=== PATIENT | female | born 1955 | race Caucasian/White ===

== ENCOUNTER 2017-12-18 05:50 | Inpatient (IN) | payer BC, OTHER ==
[~2017-12-18] VITALS: Ht 160 cm; Wt 68.3 kg
[~2017-12-18 05:50] MED LIST: 5-HT50CA2 PO; ADVA100A INH; ALBUAER3 INH; HYDR-3583 PO; IMIT100T PO; MULTTAB67 PO; OMEGCAP PO; OMEP20TA93 PO; ROSU10 PO
[2017-12-18] MEDS ORDERED: METOPROLOL TARTRATE 25 MG TAB PO PRN (06:45)
[2017-12-18] MEDS ORDERED: SODIUM CHLORID 0.9% 500 ML IV PRN (06:45)
[2017-12-18] MEDS ORDERED: POVIDONE IODINE 5% (ANTISEPSIS KIT) 4 APPLICATIONS EACH NARE PRN (06:45)
[2017-12-18] MEDS ORDERED: VANCOMYCIN 1 GM/200 ML PREMIX IV SCH (06:45)
[2017-12-18] MEDS ORDERED: CHLORHEXIDINE GLUCONATE 2 % 1 PACK (2 CLOTHS) TOPICAL PRN (06:45)
[2017-12-18] MEDS ORDERED: LACTATED RINGER'S 1000 ML IV PRN (06:45)
[2017-12-18] MEDS ORDERED: FLUT1INH INH (06:51)
[2017-12-18] MEDS ORDERED: MELO7.5T27 PO (06:53)
[2017-12-18] MEDS ORDERED: ACET-822 PO (06:53)
[2017-12-18 06:55] LABS: AUTOMATED NEUTROPHIL # 6.4 TH/MM3 (1.8-7.7); BASOPHIL # 0.1 TH/MM3 (0-0.2); BASOPHIL % 0.6 % (0.0-2.0); EOSINOPHIL # 0.3 TH/MM3 (0-0.4); EOSINOPHIL % 3.1 % (0.0-4.0); HEMATOCRIT 38.9 % (35.0-46.0); HEMOGLOBIN 13.6 GM/DL (11.6-15.3); LYMPH % 21.9 % (9.0-44.0); LYMPHOCYTE # 2.1 TH/MM3 (1.0-4.8); MEAN CELL VOLUME 90.2 FL (80.0-100.0); MEAN CORPUSCULAR HEMOGLOBIN 31.5 PG (27.0-34.0); MEAN CORPUSCULAR HGB CONC 34.9 % (32.0-36.0); MEAN PLATELET VOLUME 7.8 FL (7.0-11.0); MONO % 8.2 % (0.0-8.0); MONOCYTE # 0.8 TH/MM3 (0-0.9); NEUT % 66.2 % (16.0-70.0); PLATELET COUNT 307 TH/MM3 (150-450); RED BLOOD COUNT 4.31 MIL/MM3 (4.00-5.30); RED CELL DISTRIBUTION WIDTH 13.1 % (11.6-17.2); WHITE BLOOD COUNT 9.6 TH/MM3 (4.0-11.0)
[2017-12-18] MEDS ORDERED: SUGAMMADEX SODIUM 200 MG/2 ML VIAL IV PUSH ONE (07:11)
[2017-12-18] MEDS ORDERED: HYDROmorphone HCL PF 2 MG/ML VIAL ONE (07:12)
[2017-12-18] MEDS ORDERED: GLUCAGON 1 MG/ML VIAL ONE (07:12)
[2017-12-18] MEDS ORDERED: BUPIVACAINE/EPINEPHRINE 0.5% PF 30 ML VIAL ONE (07:12)
[2017-12-18] MEDS ORDERED: RESP: ALBUTEROL 2.5 MG/3 ML NEB (SCH) ONE (07:20)
[2017-12-18] MEDS ORDERED: diphenhydrAMINE HCL 50 MG/ML VIAL ONE (07:20)
[2017-12-18 07:26] LABS: CALCIUM 8.8 MG/DL (8.5-10.1); CREATININE 0.72 MG/DL (0.50-1.00)
[2017-12-18] MEDS ORDERED: RESP: ALBUTEROL 2.5 MG/IPRATROPIUM 0.5 MG NEB (PRN) ONE (07:26)
[2017-12-18] MEDS ORDERED: DO NOT ADM ANY ANTICOAGULANT DRUGS PRN (10:49)
--- NOTE | 2017-12-18 10:59 | HHI.PR ---
Immediate Post Op Note Procedure Date: Dec 18, 2017 Pre Op Diagnosis: gastric outlet obstruction, gerd Post Op Diagnosis: same Surgeon: Yinka Brown MD Cigar Head Puncher(s): Dr. Romo Procedure: lap RY Gastrojejunostomy, truncal vagotomy, hh repair Findings: no leak with methylene blue, bx confirm vagus nerve Complications: none Specimen(s) removed: anterior and posterior vagus Estimated blood loss: 15cc Anesthesia: General Drains: None Patient to: PACU Patient Condition: Good Yinka Brown MD Dec 18, 2017 10:59
[2017-12-18] MEDS: SODIUM CHLORIDE 0.9% FLUSH 10 ML FLUSH IV FLUSH SCH ×2 (11:00→20:36)
[2017-12-18] MEDS ORDERED: diphenhydrAMINE HCL 25 MG CAP PO PRN (11:00)
[2017-12-18] MEDS ORDERED: KETOROLAC TROMETHAMINE 30 MG/ML (IVP) VIAL IVP PRN (11:00)
[2017-12-18] MEDS ORDERED: ONDANSETRON HCL 4 MG/2 ML VIAL IV PUSH PRN (11:00)
[2017-12-18] MEDS ORDERED: oxyCODONE/ACETAMINOPHEN 5 MG/325 MG TAB PO PRN (11:00)
[2017-12-18] MEDS ORDERED: NALOXONE HCL 0.4 MG/ML AMP IV PUSH PRN (11:00)
[2017-12-18] MEDS ORDERED: Post-op Orders (for Pharmacy) XX ONE (11:00)
[2017-12-18] MEDS ORDERED: MORPHINE SULFATE 30 MG/30 ML PCA IV SCH (11:00)
[2017-12-18] MEDS ORDERED: METOCLOPRAMIDE HCL 10 MG/2 ML VIAL IVS PRN (11:00)
[2017-12-18] MEDS ORDERED: SODIUM CHLORIDE 0.9% FLUSH 10 ML FLUSH IV FLUSH PRN (11:00)
[2017-12-18] MEDS ORDERED: *ONDANSETRON 4 MG VIAL PERIprocedural Use ONLY ONE (11:05)
[2017-12-18] MEDS ORDERED: MIDAZOLAM HCL 2 MG/2 ML VIAL ONE (11:27)
[2017-12-18] MEDS: SODIUM CHLOR 0.9% 1000 ML INJ 1,000 ML IV SCH ×2 (11:35→20:36)
[2017-12-18] MEDS ORDERED: LACTATED RINGER'S 1000 ML INJ 2,000 ML IV ONE (12:00)
[2017-12-18] MEDS ORDERED: PROPOFOL 200 MG/20 ML AMP IV ONE (12:00)
[2017-12-18] MEDS ORDERED: SUCCINYLCHOLINE CHLORIDE 100 MG/5 ML SYRINGE IV PUSH ONE (12:00)
[2017-12-18] MEDS ORDERED: ESMOLOL HCL 100 MG/10 ML VIAL IV ONE (12:00)
[2017-12-18] MEDS ORDERED: LIDOCAINE HCL 1% PF 5 ML SYRINGE OTHER ONE (12:00)
[2017-12-18] MEDS ORDERED: DEXAMETHASONE SOD PHOS 4 MG/ML VIAL IV ONE (12:00)
[2017-12-18] MEDS ORDERED: PHENYLEPH/NS 1000 MCG/10 ML SYR IV ONE (12:00)
[2017-12-18] MEDS ORDERED: ROCURONIUM INJ 50 MG/5 ML SYRINGE IV PUSH ONE (12:00)
[2017-12-18] MEDS ORDERED: ONDANSETRON HCL 4 MG/2 ML VIAL IV ONE (12:00)
[2017-12-18 13:30] VITALS: BP 122/66; PULSE 94; RESP 16; TEMP 97.8; O2SAT 96
[2017-12-18] MEDS: DOCUSATE SODIUM 100 MG CAP PO SCH ×2 (13:30→20:36)
[2017-12-18] MEDS: PCA - TOTAL MG MORPHINE DELIVERED PER SHIFT SCH ×2 (14:00→22:00)
[2017-12-18] MEDS ORDERED: ACETAMINOPHEN 1000 MG/100 ML 100 ML IV ONE (18:30)
[2017-12-18 20:00] VITALS: BP 103/59; PULSE 103; RESP 17; TEMP 97.5; O2SAT 95
[2017-12-18] MEDS: VANCOMYCIN INJ 1,000 MG in SODIUM CHLOR 0.9% 250 ML INJ 250 ML IV SCH (20:36)
[2017-12-19] VITALS: BP 104/59; PULSE 111; RESP 17; TEMP 97.6; O2SAT 96
--- NOTE | 2017-12-19 00:12 | EKG ---
Date Performed: 12/18/2017 Time Performed: 06:43:05 PTAGE: 62 years EKG: Sinus rhythm NORMAL ECG PREVIOUS TRACING : 11/06/2009 15.40 DOCTOR: Cara Landon Interpretating Date/Time 12/19/2017 00:05:19
[2017-12-19 04:42] VITALS: BP 108/66; PULSE 108; RESP 17; TEMP 98; O2SAT 96
[2017-12-19] MEDS: PCA - TOTAL MG MORPHINE DELIVERED PER SHIFT SCH ×3 (06:00→22:39)
[2017-12-19 07:02] LABS: AUTOMATED NEUTROPHIL # 10.9 TH/MM3 (1.8-7.7); BASOPHIL % 0.1 % (0.0-2.0); HEMATOCRIT 34.3 % (35.0-46.0); HEMOGLOBIN 11.5 GM/DL (11.6-15.3); LYMPH % 11.2 % (9.0-44.0); LYMPHOCYTE # 1.5 TH/MM3 (1.0-4.8); MEAN CELL VOLUME 92.2 FL (80.0-100.0); MEAN CORPUSCULAR HEMOGLOBIN 30.9 PG (27.0-34.0); MEAN CORPUSCULAR HGB CONC 33.5 % (32.0-36.0); MEAN PLATELET VOLUME 8.2 FL (7.0-11.0); MONOCYTE # 1.2 TH/MM3 (0-0.9); NEUT % 79.7 % (16.0-70.0); PLATELET COUNT 263 TH/MM3 (150-450); RED BLOOD COUNT 3.72 MIL/MM3 (4.00-5.30); RED CELL DISTRIBUTION WIDTH 12.8 % (11.6-17.2); WHITE BLOOD COUNT 13.7 TH/MM3 (4.0-11.0)
[2017-12-19 07:33] LABS: BICARBONATE 21.2 MEQ/L (21.0-32.0); CALCIUM 8.1 MG/DL (8.5-10.1); CREATININE 0.66 MG/DL (0.50-1.00)
[2017-12-19 08:00] VITALS: BP 121/58; PULSE 105; RESP 17; TEMP 97.8; O2SAT 97
[2017-12-19] MEDS: VANCOMYCIN INJ 1,000 MG in SODIUM CHLOR 0.9% 250 ML INJ 250 ML IV SCH (08:02)
[2017-12-19] MEDS: DOCUSATE SODIUM 100 MG CAP PO SCH ×2 (08:02→22:39)
[2017-12-19] MEDS: SODIUM CHLORIDE 0.9% FLUSH 10 ML FLUSH IV FLUSH SCH ×2 (08:02→22:39)
[2017-12-19] MEDS: SODIUM CHLOR 0.9% 1000 ML INJ 1,000 ML IV SCH ×2 (08:03→19:30)
--- NOTE | 2017-12-19 08:48 | HHI.PR ---
Subjective Subjective Notes c/o garcia, no nausea, mild abdominal pain Objective Vitals/I&O Vital Signs Date Time Temp Pulse Resp B/P (MAP) Pulse Ox O2 Delivery O2 Flow Rate FiO2 12/19/17 06:00 18 12/19/17 04:42 98.0 108 108/66 (80) 96 12/18/17 12:30 Nasal Cannula 2 Labs Laboratory Tests Test 12/19/17 05:28 White Blood Count 13.7 Red Blood Count 3.72 Hemoglobin 11.5 Hematocrit 34.3 Mean Corpuscular Volume 92.2 Mean Corpuscular Hemoglobin 30.9 Mean Corpuscular Hemoglobin Concent 33.5 Red Cell Distribution Width 12.8 Platelet Count 263 Mean Platelet Volume 8.2 Neutrophils (%) (Auto) 79.7 Lymphocytes (%) (Auto) 11.2 Monocytes (%) (Auto) 9.0 Eosinophils (%) (Auto) 0.0 Basophils (%) (Auto) 0.1 Neutrophils # (Auto) 10.9 Lymphocytes # (Auto) 1.5 Monocytes # (Auto) 1.2 Eosinophils # (Auto) 0.0 Basophils # (Auto) 0.0 CBC Comment DIFF FINAL Differential Comment Blood Urea Nitrogen 19 Creatinine 0.66 Random Glucose 74 Calcium Level 8.1 Sodium Level 142 Potassium Level 3.7 Chloride Level 111 Carbon Dioxide Level 21.2 Anion Gap 10 Estimat Glomerular Filtration Rate 91 Lungs: Clear Abdomen: Other (incisions c/d/i) A/P Assessment and Plan POD 1 Lap GJ, lap vagotomy, hh repair PLAN ok for ice chips UGI pending, advance diet to clears following results oob pain control dvt ppx Yinka Brown MD Dec 19, 2017 08:48
--- NOTE | 2017-12-19 09:49 | MP ---
cc: Yinka Brown MD DATE OF OPERATION: DATE OF PROCEDURE: 12/18/2017. PREOPERATIVE DIAGNOSIS: Gastric outlet obstruction, reflux. POSTOPERATIVE DIAGNOSIS: Gastric outlet obstruction, reflux. PROCEDURE PERFORMED: 1. Laparoscopic Jesus-en-Y gastrojejunostomy. 2. Truncal vagotomy. 3. Laparoscopic hiatal hernia repair. SURGEON: Yinka Brown MD MOBILE DEVICE ENGINEER: Pedro Odonnell MD. Dr. Odonnell needed due to the complexity of the case. Dr. Odonnell assisted with a camera control and retraction. ANESTHESIA: GETA. IV FLUIDS: See anesthesia sheet. ESTIMATED BLOOD LOSS: 15 mL DRAINS: None. COMPLICATIONS: None. WOUND CLASSIFICATION: Clean/contaminated. FINDINGS: No leak with methylene blue. SPECIMENS: Anterior and posterior vagus nerves sent for pathology. INDICATIONS: The patient is a 62-year-old female who presents with acute gastric outlet obstruction. She has noted scarring and a distal obstruction on endoscopy and upper GI series. She had difficulty tolerating solids and has been on liquid diet and had significant reflux as well. She had further workup and decision was made for bypass and laparoscopic Jesus-en-Y gastrojejunostomy. Discussed with the patient the need for possible delayed gastric emptying. Also, need for possible jejunostomy tube and possible future revisional procedures. She stated understanding and agreed and would like to proceed. DETAILS OF PROCEDURE: The patient was taken to the operating suite, placed in supine position. She was prepped and draped in the usual sterile fashion after induction of general endotracheal anesthesia. Brief timeout was done stating correct patient, procedure and surgical site. We were all in agreement with this. Attention first directed 18 cm distal to the xiphoid process. Local anesthetic injected. A small stab suzanne incision was made. A 5 mm incision was made at midline. Optiview port was placed under direct visualization and pneumoperitoneum induced to 15 mm. On visual inspection, no evidence of injury. The patient was noted to have some infraumbilical adhesions as well. Several other ports were placed, including one right upper quadrant 5 mm port for liver retraction. Next right lower quadrant port was a 12 mm, followed by a left lower quadrant port 12 mm and left upper quadrant port 5 mm. Decision was made to do the truncal vagotomy out first. The patient was placed in reverse Trendelenburg. The [place] Flex retractor was placed in order to get adequate exposure of visualization to the hiatus. The pars was dissected out and the esophagus/GE junction was also further dissected out circumferentially. A 1/2 inch [place] drain was placed to assist with retraction and mobilization. A window posterior to the esophagus was created, identifying both the right and left flor in attempts to identify the vagus nerves. After full mobilization again at the GE junction, the posterior vagus was identified and two 5 mm clips placed, one proximally and then second one distally and a 1.5 cm segment of nerve was transected using Endo Tim. This was sent to pathology for confirmation. Next, the anterior aspect of the left vagus nerve was identified. Again this was anteriorly. This was dissected off the esophagus. Again, 1.5 cm segment was identified and 2 clips were placed, one proximally, one distally and the Endo Tim used to transect the anterior vagus nerve, again sent for pathology for confirmation which was positive on findings via the pathologist. Next, the hiatus and hiatal hernia was reapproximated to the posterior flor. This was done with 0 Vicryl in a uusctr-ff-[id number] fashion. Following this, attention was then directed to the ligament of Treitz. The omentum was retracted cephalad. Harmonic scalpel was used to transect the omentum from the colon and the gastrocolic ligament. This was done from the hepatic flexure to the splenic and across the transverse colon and then split the omentum. The colon was then retracted cephalad. The ligament of Treitz was identified. The small bowel was walked approximately 20 cm distally in order to find an appropriate place for transection. An Endo-KRISTOPHER stapler was used to transect the bowel. This was done in preparation of creation of a gastrojejunostomy. This was done with [place] Flex Endo-GI stapler with the SeamGuard reinforced. A clip was placed to theo the proximal limb. The distal limb was then further walked another 35 cm distally. Two enterotomies were done on the antimesenteric borders of the biliopancreatic limb and the previously transected limb again in conjunction and creation of our gastrojejunostomy. The linear KRISTOPHER stapler was used to create a rmplslb-kqh-spexpxp layer. This was done in a xauv-gt-hrfj stapling manner. Next, the enterotomies were grasped with a [place]. Conjoined enterotomies were done using Endo-GI stapler. Small clips were placed to the staple line for hemostasis. A 2-0 silk suture was used in the small redundant portion and secured with a Lapra-Ty. Once we were satisfied in completion of this, the patient was then placed back in reverse Trendelenburg with left side up. The greater curvature of the stomach was identified at an appropriate area and the greater curvature vessels were taken using harmonic scalpel. Once an adequate landing zone was obtained, the posterior greater curvature of the stomach in a retrocolic fashion was viewed. Harmonic scalpel was used to make a small enterotomy in this gastric portion. The Jesus limb was brought cephalad as well, small enterotomy made in the antimesenteric border of the small bowel as well, again using an Endo-KRISTOPHER stapler to approximate and create a iefeoqs-ecx-ititsrq layer in order to fashion a gastrojejunostomy was done. Next, to close the conjoined enterotomy, a second firing staple load was done to close this layer as well. A 2-0 silk suture was used on a Lapra-Ty in order to place a crotch stitch reinforcement. Upon completion of this, then attention directed to the mesenteric defects and potential for internal hernias. Therefore, a nonabsorbable silk suture was used in a running fashion to reapproximate the jejunojejunostomy defect. Following this, Evicel was placed at all suture lines. Prior to this actually the gastrojejunostomy staple line was tested with methylene blue without evidence of leaking. Next, the patient was placed flat. The pneumoperitoneum was removed. Ports were removed. Prior to removal transfascial suture closure of the 12 mm ports was done with 0 Vicryl suture. 4-0 Monocryl subcuticular sutures were done at all port sites. Sterile dressings were then placed. All lap and instrument counts were correct at the end of the procedure. The patient tolerated the procedure well. There were no intraoperative complications. The patient was extubated and taken stable to PACU. MD YONI Carvajal/RENATO , 09:01 AM , 09:48 AM
[2017-12-19] MEDS ORDERED: ACETAMINOPHEN 1000 MG/100 ML 100 ML IV ONE (10:00)
[2017-12-19] MEDS ORDERED: DIATRIZOATE MEGLUM/DIATRIZOATE SOD 120 ML BTL (for RAD DIAG) PO ONE (10:30)
[2017-12-19] MEDS: ENOXAPARIN SODIUM 30 MG/0.3 ML SYRINGE SQ SCH (11:07)
--- NOTE | 2017-12-19 11:09 | RADRPT ---
EXAM DATE/TIME: 12/19/2017 10:25 [facility] COMPARISON: No previous studies available for comparison. INDICATIONS : Post gastrojejunostomy, history of gastric outlet obstruction FLUORO TIME: 1.4 minutes IMAGE COUNT: 11 CONTRAST: 1. MD Zelaya MEDICAL HISTORY : Gastroesophageal reflux disease. gastric outlet obstruction SURGICAL HISTORY : gastrojejunostomy ENCOUNTER: Initial ACUITY: 1 day PAIN SCORE: 0/10 LOCATION: Bilateral abdomen FINDINGS: The esophagus fills normally. No focal filling defects are seen in the stomach. Gastrojejunostomy is patent without evidence for leakage. CONCLUSION: 1. No leakage or obstruction at the gastrojejunostomy site. Efrain Carpenter MD on December 19, 2017 at 11:05 Board Certified Radiologist. This report was verified electronically.
[2017-12-19 12:00] VITALS: BP 111/74; PULSE 111; RESP 17; TEMP 98; O2SAT 97
[2017-12-19 16:00] VITALS: BP 129/63; PULSE 110; RESP 18; TEMP 98.3; O2SAT 96
[2017-12-19 20:00] VITALS: BP 102/70; PULSE 116; RESP 16; TEMP 98.1; O2SAT 97
[2017-12-20] VITALS (8 sets, daily range): BP systolic 114–151; BP diastolic 59–76; PULSE 76–90; RESP 15–18; TEMP 97.1–97.9; O2SAT 94–100
[2017-12-20] MEDS: SODIUM CHLOR 0.9% 1000 ML INJ 1,000 ML IV SCH ×2 (05:03→15:43)
[2017-12-20] MEDS: PCA - TOTAL MG MORPHINE DELIVERED PER SHIFT SCH ×3 (05:04→21:11)
[2017-12-20] MEDS ORDERED: ACETAMINOPHEN 1000 MG/100 ML 100 ML IV ONE (05:30)
[2017-12-20] MEDS: DOCUSATE SODIUM 100 MG CAP PO SCH ×2 (08:51→21:00)
[2017-12-20] MEDS: ENOXAPARIN SODIUM 30 MG/0.3 ML SYRINGE SQ SCH (08:58)
[2017-12-20] MEDS: SODIUM CHLORIDE 0.9% FLUSH 10 ML FLUSH IV FLUSH SCH ×2 (08:59→21:11)
[2017-12-20 15:22] LABS: AUTOMATED NEUTROPHIL # 6.4 TH/MM3 (1.8-7.7); BASOPHIL # 0.1 TH/MM3 (0-0.2); BASOPHIL % 0.7 % (0.0-2.0); EOSINOPHIL # 0.2 TH/MM3 (0-0.4); EOSINOPHIL % 2.2 % (0.0-4.0); HEMATOCRIT 32.2 % (35.0-46.0); LYMPH % 18.6 % (9.0-44.0); LYMPHOCYTE # 1.7 TH/MM3 (1.0-4.8); MEAN CELL VOLUME 91.3 FL (80.0-100.0); MEAN CORPUSCULAR HEMOGLOBIN 31.1 PG (27.0-34.0); MONO % 8.7 % (0.0-8.0); MONOCYTE # 0.8 TH/MM3 (0-0.9); NEUT % 69.8 % (16.0-70.0); PLATELET COUNT 243 TH/MM3 (150-450); RED BLOOD COUNT 3.52 MIL/MM3 (4.00-5.30); WHITE BLOOD COUNT 9.1 TH/MM3 (4.0-11.0)
[2017-12-20 15:44] LABS: BICARBONATE 24.6 MEQ/L (21.0-32.0); CALCIUM 7.8 MG/DL (8.5-10.1); CREATININE 0.53 MG/DL (0.50-1.00)
--- NOTE | 2017-12-20 16:57 | HHI.PR ---
Subjective Subjective Notes Resting in bed Visiting with friends Pain controlled No headache now after having some iced tea Objective Vitals/I&O Vital Signs Date Time Temp Pulse Resp B/P (MAP) Pulse Ox O2 Delivery O2 Flow Rate FiO2 12/20/17 16:00 97.4 84 18 151/76 (101) 98 12/18/17 12:30 Nasal Cannula 2 Labs Laboratory Tests Test 12/20/17 14:36 White Blood Count 9.1 Red Blood Count 3.52 Hemoglobin 11.0 Hematocrit 32.2 Mean Corpuscular Volume 91.3 Mean Corpuscular Hemoglobin 31.1 Mean Corpuscular Hemoglobin Concent 34.0 Red Cell Distribution Width 13.0 Platelet Count 243 Mean Platelet Volume 8.0 Neutrophils (%) (Auto) 69.8 Lymphocytes (%) (Auto) 18.6 Monocytes (%) (Auto) 8.7 Eosinophils (%) (Auto) 2.2 Basophils (%) (Auto) 0.7 Neutrophils # (Auto) 6.4 Lymphocytes # (Auto) 1.7 Monocytes # (Auto) 0.8 Eosinophils # (Auto) 0.2 Basophils # (Auto) 0.1 CBC Comment DIFF FINAL Differential Comment Blood Urea Nitrogen 11 Creatinine 0.53 Random Glucose 79 Calcium Level 7.8 Sodium Level 144 Potassium Level 3.6 Chloride Level 113 Carbon Dioxide Level 24.6 Anion Gap 6 Estimat Glomerular Filtration Rate 117 Cardiovascular: Regular Lungs: Clear Abdomen: Other (inc c/d/i ), Post-op tenderness Extremities: No edema A/P Assessment and Plan 62 year old female POD2 Lap GJ, lap vagotomy, hh repair -Advance to full liquid diet -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 I reviewed and agree with the findings presented. I attest that I had a hoor-ah-zyym encounter with the patient on the same day, and personally performed and documented my assessment and findings in the medical record. Liz Ramos/First Samra FERGUSON Dec 20, 2017 16:57 Yinka Brown MD Dec 21, 2017 15:59
[2017-12-20] MEDS: ACETAMINOPHEN 1000 MG/100 ML 100 ML IV PRN (17:39)
[2017-12-21 00:38] VITALS: BP 139/82; PULSE 78; RESP 18; TEMP 97.8; O2SAT 97
[2017-12-21] MEDS: SODIUM CHLOR 0.9% 1000 ML INJ 1,000 ML IV SCH (02:27)
[2017-12-21 04:00] VITALS: BP 125/74; PULSE 78; RESP 17; TEMP 97.9; O2SAT 97
[2017-12-21] MEDS: PCA - TOTAL MG MORPHINE DELIVERED PER SHIFT SCH (06:00)
[2017-12-21] MEDS: ACETAMINOPHEN 1000 MG/100 ML 100 ML IV PRN (06:08)
[2017-12-21 08:00] VITALS: BP 129/74; PULSE 75; RESP 18; TEMP 97.5; O2SAT 94
[2017-12-21 08:02] VITALS: RESP 17
[2017-12-21] MEDS: SODIUM CHLORIDE 0.9% FLUSH 10 ML FLUSH IV FLUSH SCH ×2 (08:15→22:10)
[2017-12-21] MEDS: DOCUSATE SODIUM 100 MG CAP PO SCH ×2 (08:16→21:00)
[2017-12-21] MEDS: ENOXAPARIN SODIUM 30 MG/0.3 ML SYRINGE SQ SCH (09:34)
--- NOTE | 2017-12-21 15:05 | HHI.PR ---
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
[2017-12-21] MEDS ORDERED: OXYC1TAB63 PO (15:06)
[2017-12-21 16:00] VITALS: BP 141/75; PULSE 72; RESP 18; TEMP 98; O2SAT 98
[2017-12-21] MEDS: oxyCODONE/ACETAMINOPHEN 5 MG/325 MG TAB PO PRN ×2 (18:05→22:09)
[2017-12-21 20:00] VITALS: BP 135/69; PULSE 81; RESP 18; TEMP 98.2; O2SAT 96
[2017-12-22] VITALS: BP 137/65; PULSE 77; RESP 18; TEMP 98.2; O2SAT 96
[2017-12-22] MEDS: oxyCODONE/ACETAMINOPHEN 5 MG/325 MG TAB PO PRN (06:12)
[2017-12-22 08:00] VITALS: BP 132/70; PULSE 71; RESP 18; TEMP 98; O2SAT 95
[2017-12-22] MEDS: SODIUM CHLORIDE 0.9% FLUSH 10 ML FLUSH IV FLUSH SCH (08:44)
[2017-12-22] MEDS: DOCUSATE SODIUM 100 MG CAP PO SCH (08:44)
[2017-12-22] MEDS: ENOXAPARIN SODIUM 30 MG/0.3 ML SYRINGE SQ SCH (10:51)
[2017-12-22] MEDS ORDERED: REGL10TA5 PO (11:27)
[2017-12-22] MEDS ORDERED: ZOFR4TAB PO (11:28)
--- NOTE | 2017-12-22 11:31 | HHI.DS ---
Discharge Summary Admission Date Dec 18, 2017 at 10:56 Discharge Date: Dec 22, 2017 Admitting Diagnosis Brief History 62 year old female POD4 Lap GJ, lap vagotomy, hh repair CBC/BMP: 12/20/17 1436 12/20/17 1436 Significant Findings Laboratory Tests Test 12/20/17 14:36 Red Blood Count 3.52 MIL/MM3 (4.00-5.30) Hemoglobin 11.0 GM/DL (11.6-15.3) Hematocrit 32.2 % (35.0-46.0) Monocytes (%) (Auto) 8.7 % (0.0-8.0) Calcium Level 7.8 MG/DL (8.5-10.1) Chloride Level 113 MEQ/L (98-107) PE at Discharge Pleasant 62 year old female resting in bed Cardio: RRR Resp: CTAB Abd: lap sites c/d/i; minimal tenderness with palpation No edema Hospital Course This is a 62 year old female POD3 Lap GJ, lap vagotomy, hh repair. The patient was able to tolerate a full liquid diet. She will continue this diet at home. The patient's pain was controlled using oral pain medications. The patient was provided with a prescription for Percocet, Zofran and Reglan. The patient will follow up with Dr. Brown on MondayDecember 29. Pt Condition on Discharge: Good Discharge Disposition: Discharge Home Discharge Instructions DIET: Follow Instructions for: Full Liquid Diet Activities you can perform: Regular-No Restrictions Other Activity Instructions: Okay to shower; pat incisions dry No bathtubs, swimming pool or beach until after follow up visit in the office Avoid any heavy pushing pulling or lifting Liz Ramos/First Samra FERGUSON Dec 22, 2017 11:31
[2017-12-22 12:00] VITALS: BP 115/81; PULSE 69; RESP 18; TEMP 97.9; O2SAT 96
== END 2017-12-22 13:23 | disposition home or self-care (01) | DRG 328 ==
LOC: HSDC 05:50 → EDSTATUS 08:00 → HSDI 10:56 → N07B 13:21
PROVIDERS: ADMIT Surgery; ATTEND Surgery
PROC: 008Q4ZZ Division of Vagus Nerve, Percutaneous Endoscopic Approach (ICD-10-PCS; 2017-12-18)
PROC: 0BQT4ZZ Repair Diaphragm, Percutaneous Endoscopic Approach (ICD-10-PCS; 2017-12-18)
PROC: 0D164ZA Bypass Stomach to Jejunum, Percutaneous Endoscopic Approach (ICD-10-PCS; principal; 2017-12-18 07:38)
DX: K31.1 Adult hypertrophic pyloric stenosis (principal); J45.909 Unspecified asthma, uncomplicated; K21.9 Gastro-esophageal reflux disease without esophagitis
CPT/HCPCS: 74240; 80048; 85025; 86850; 86900; 86901; 88302; 88305; 88331; 93005; 94150; J0131; J0330; J1100; J1170; J1200; J1610; J1650; J2250; J2270; J2370; J2405; J2765; J3010; J3370; J7030; J7050; J7120; J7613; Q9963